=== PATIENT | female | born 1990 | race Two or more races ===

== ENCOUNTER 2019-02-12 23:23 | Inpatient (IN) | payer OTHER ==
[~2019-02-12] VITALS: Ht 154.9 cm; Wt 59.9 kg
[2019-02-12 23:35] VITALS: BP 105/67
--- NOTE | 2019-02-12 23:35 | NUR ---
FRICTION SAW OPERATOR TELE NOTES RECEIVED PATIENT FROM [facility] VIA GURNEY ACCOMPANIED BY 2 EMT, SAFELY TRANSFERRED TO BED, AWAKE ALERT AND ORIENTED X4, RESPIRATIONS EVEN AND UNLABORED WITH EQUAL RISE AND FALL OF CHEST, AT THIS TIME DENIES ANY PAIN OR DISCOMFORT, DENIES NAUSEA AT THIS TIME, PATIENT COMPLAINT OF FEELING DIZZY. ADMITTING DX ATAXIA, DIZZINESS AND NYSTAGMUS EYES NOTED RAPID MOVEMENT. IV SITE TO LEFT AC #20G INTACT AND PATENT, NO REDNESS, NO INFILTRATION PRESENT, PLACED ON OPERATIONS SYSTEMS SPECIALIST SR 81, BELONGINGS LIST DONE, PATIENT STATES " SHE HAS NO SKIN OR WOUND ISSUES". DECIDED TO KEPT PERSONAL CLOTHES ON. PATIENT STATES SHE HAS A HISTORY OF" VERTIGO X 1 YR AGO, IRON DEFICIENCY ANEMIA, ANXIETY& DEPRESSION BUT DOES NOT CURRENTLY TAKE ANY HOME MEDS AND HEAVY MENSTRUAL CYCLE. HOSPITALIST MADE AWARE OF ADMISSION WILL AWAIT ADMITTING ORDERS AND FOLLOW RECOMMENDED, ORIENTED TO STAFF AND CALL LIGHT AND KEPT WITHIN REACH, FALL PRECAUTIONS RENDERED, LOW BED AND LOCKED, BED ALARM IN PLACE, ALL NEEDS ATTENDED AT THIS TIME, WILL CONTINUE TO MONITOR AND ADDRESS NEEDS.
[2019-02-13] MEDS ORDERED: MAG HYDROX/AL HYDROX/SIMETH 30 ML UDC PO PRN (00:30)
[2019-02-13] MEDS ORDERED: ZOLPIDEM TARTRATE 5 MG TABLET PO PRN (00:30)
[2019-02-13] MEDS ORDERED: MAGNESIUM HYDROXIDE 30 ML UDC PO PRN (00:30)
[2019-02-13] MEDS ORDERED: HYDROCODONE/APAP 5/325MG 1 EACH TABLET PO PRN (00:30)
[2019-02-13] MEDS ORDERED: MORPHINE SULFATE INJ 2 MG/ML DISP.SYRIN IV PRN (00:30)
[2019-02-13] MEDS ORDERED: ONDANSETRON HCL/PF 4 MG/2 ML VIAL IVP PRN (00:30)
[2019-02-13] MEDS: ACETAMINOPHEN 325 MG TABLET PO PRN ×2 (00:46→09:22)
[2019-02-13] MEDS: IV NS 0.9% 1,000 ML IV PRN ×2 (00:46→19:26)
--- NOTE | 2019-02-13 00:46 | NUR ---
TRAIN CONTROL ELECTRONIC TECHNICIAN NOTES PATIENT STATES "SHE HAS A HEADACHE HAS NOT EATEN SINCE YESTERDAY " OFFERED TYLENOL FOR HEADACHE, PATIENT AGREED, PRN GIVEN ORDERED. WILL CONTINUE TO MONITOR FOR EFFECTIVENESS.
[2019-02-13 04:00] VITALS: BP 101/55
[2019-02-13 06:36] LABS: BASOPHILS % (AUTO) 0.1 % (0.0-2.0); HEMATOCRIT 42 % (33-45); LYMPHOCYTES # (AUTO) 0.8 /CMM (0.8-4.8); LYMPHOCYTES % (AUTO) 11.8 % (20.0-44.0); MEAN CORPUSCULAR HGB CONC 33 g/dl (31.0-36.0); MEAN CORPUSCULAR VOLUME 93 fL (82-100); MONOCYTES # (AUTO) 0.1 /CMM (0.1-1.30); MONOCYTES % (AUTO) 1.4 % (2.0-12.0); NEUTROPHILS # (AUTO) 6.1 /CMM (1.8-8.9); NEUTROPHILS % (AUTO) 86.7 % (43.0-81.0); PLATELET COUNT (AUTO) 365 /CMM (150-450); RED BLOOD CELL COUNT(AUTO) 4.52 MIL/uL (4.0-5.2)
--- NOTE | 2019-02-13 06:36 | NUR ---
WELDING ENGINEER CLOSING NOTES PATIENT REMAINS IN BED SLEEPING BUT EASILY AROUSABLE, RESPIRATIONS EVEN AND UNLABORED WITH EQUAL RISE AND FALL OF CHEST, DENIES ANY PAIN OR DISCOMFORT AT THIS TIME. IV SITE TO LEFT AC#20 G INTACT AND PATENT, NO REDNESS, NO INFILTRATION PRESENT, IVF RUNNING ORDERED, MEDICAL INSURANCE CODER IN PLACE SR 64,FLUIDS OFFERED, PATIENT WAS ABLE TO AMBULATE TO RESTROOM AND BACK TO BED SAFELY WITH ASSISTANCE. SAFETY PRECAUTIONS AND FALL PRECAUTIONS RENDERED, LOW BED AND LOCKED, BED ALARM IN PLACE, CALL LIGHT KEPT WITHIN REACH, DISCUSSED PLAN OF CARE, ALL NEEDS ATTENDED REMAINS COMFORTABLE AT THIS TIME, WILL CONTINUE TO MONITOR AND ENDORSE TO NEXT SHIFT FOR CONTINUITY OF CARE.
[2019-02-13 07:07] LABS: ALBUMIN 3.5 g/dL (3.4-5.0); BILIRUBIN,TOTAL 0.9 mg/dL (0.2-1.0); CREATININE 0.7 mg/dL (0.6-1.3); POTASSIUM 4.1 mmol/L (3.5-5.1); TOTAL PROTEIN, SERUM 7.2 g/dL (6.4-8.2)
[2019-02-13 08:00] VITALS: BP 109/67
--- NOTE | 2019-02-13 08:00 | NUR ---
COUTURE ALTERATIONS DRESSMAKER NOTES PT IN BED, ASLEEP, EASY TO AROUSE, ALERT AND ORIENTED, STILL WITH COMPLAINT OF DIZZINESS, NOT IN DISTRESS, CALL LIGHT WITHIN REACH, KEPT COMFORTABLE IN BED, BED ALARM ON.
[2019-02-13] MEDS ORDERED: MECL-102 PO (08:43)
[2019-02-13] MEDS: PANTOPRAZOLE 40 MG TABLET.DR PO SCH (08:49)
[2019-02-13] MEDS ORDERED: MECLIZINE HCL 25 MG TABLET PO PRN (10:00)
--- NOTE | 2019-02-13 13:00 | NUR ---
RN MS NOTES PT IN BED, ASLEEP, EASY TO AROUSE, ALERT AND ORIENTED, SEEN BY MD, PLAN OF CARE DISCUSSED WITH PT, VERBALIZED UNDERSTANDING, ABLE TO WALK TO THE BATHROOM WITH STANDBY ASSISTANCE, PAIN MEDS GIVEN FOR PAIN MANAGEMENT, ASSISTED WITH NEEDS.
[2019-02-13 16:00] VITALS: BP 99/61
--- NOTE | 2019-02-13 18:30 | NUR ---
RN MS NOTES PT IN BED, AWAKE, ALERT AND ORIENTED, NO COMPLAINT AT THIS TIME, RESPIRATIONS NORMAL, IV FLUIDS INFUSING WELL, DR. DE LA TORRE AWARE THAT PT IS HERE, PM CARE PROVIDED, CALL LIGHT WITHIN REACH.
--- NOTE | 2019-02-13 18:41 | NUR ---
Patient lives at home in [place] with her mother. She is ambulatory and independent with adl's. She see her pcp at [facility]. No dc planning needs identified at this time. Addendum: 02/13/19 at 1842 by MINDY MELISSA RN Amended: Links added.
--- NOTE | 2019-02-13 19:23 | NUR ---
MS RN RECEIVE PT IN BED A/O X 3, STABLE, RESPIRATIONS EVEN AND UNLABORED, SAFETY MEASURES IN PLACE. WILL CONTINUE TO MONITOR.
[2019-02-13 20:00] VITALS: BP 107/60
[2019-02-14 06:24] LABS: BASOPHILS % (AUTO) 0.3 % (0.0-2.0); EOSINOPHILS % (AUTO) 0.5 % (0.0-6.0); HEMATOCRIT 39 % (33-45); LYMPHOCYTES # (AUTO) 3.9 /CMM (0.8-4.8); LYMPHOCYTES % (AUTO) 48.6 % (20.0-44.0); MEAN CORPUSCULAR HGB CONC 34 g/dl (31.0-36.0); MEAN CORPUSCULAR VOLUME 93 fL (82-100); MONOCYTES # (AUTO) 0.4 /CMM (0.1-1.30); MONOCYTES % (AUTO) 5.5 % (2.0-12.0); NEUTROPHILS # (AUTO) 3.6 /CMM (1.8-8.9); NEUTROPHILS % (AUTO) 45.1 % (43.0-81.0); PLATELET COUNT (AUTO) 326 /CMM (150-450); RED BLOOD CELL COUNT(AUTO) 4.16 MIL/uL (4.0-5.2)
--- NOTE | 2019-02-14 06:28 | NUR ---
MS RN PT SLEPT WELL THROUGHOUT THE NIGHT. NO COMPLAIN OF PAIN AT THIS TIME. KEPT CLEAN AND DRY AND COMFORTABLE. NEEDS ATTENDED AND ANTICIPATED. NURSING CARE RENDERED, SAFETY MEASURES AT ALL TIMES. ENDORSE TO THE NEXT SHIFT.
--- NOTE | 2019-02-14 07:39 | NUR ---
MS RN OPENING NOTES RECEIVED PT IN BED, DOZING OFF INTERMITTENTLY, EASILY AROUSED; A/O X3. PT TOLERATING RA, WITH NO ACUTE RESPIRATORY DISTRESS NOTED. PT DENIES PAIN OR ANY DISCOMFORT AT THIS TIME. PT DENIES ANY CONCERNS OR QUESTIONS AT THIS MOMENT WELL. IVF NS AT 75ML/HR TO LAC, INTACT AND FLUID INFUSING WELL. PT KEPT COMFORTABLE. PT'S BED IN LOWEST, LOCKED POSITION WITH SR X3. WILL CONTINUE PLAN OF CARE.
[2019-02-14] MEDS: PANTOPRAZOLE 40 MG TABLET.DR PO SCH (07:49)
[2019-02-14 08:00] VITALS: BP 102/59
[2019-02-14] MEDS: MECLIZINE HCL 12.5 MG TABLET PO SCH ×2 (08:49→13:05)
[2019-02-14] MEDS: IV NS 0.9% 1,000 ML IV PRN (09:00)
[2019-02-14 09:07] LABS: POTASSIUM 3.8 mmol/L (3.5-5.1)
[2019-02-14 09:08] LABS: CALCIUM, SERUM 8.3 mg/dL (8.5-10.1); CREATININE 0.8 mg/dL (0.6-1.3)
[2019-02-14] MEDS ORDERED: predniSONE 20 MG TABLET PO SCH (09:30)
[2019-02-14 13:25] LABS: MAGNESIUM 1.9 mg/dL (1.8-2.4)
--- NOTE | 2019-02-14 14:15 | NUR ---
MS METER ENGINEER NOTES PT TO DISCHARGED HOME./ PT A/O X4; AMBULATORY. PT TOLERATING RA, WITHOUT RESPIRATORY DISTRESS NOTED. PT DENIES ANY PAIN OR DISCOMFORT. REVIEWED AND SIGNED DISCHARGE INSTRUCTIONS AND INVENTORY LIST BY THE PATIENT. ALL BELONGINGS WITH THE PT. PIV TO RIGHT HAND REMOVED, AND APPLIED DRY DRESSING. ALL NEEDS AND CARE PROVIDED. PT HAPPY WITH THE CARE. VS STABLE. PRESCRIPTIONS GIVEN TO THE PT. PT LEFT AND ESCORTED BY SOLAR SALES REPRESENTATIVE AND ASSESSOR VIA WHEELCHAIR TO THE LOBBY AT 1400. DB/SANDRA ND DISTRIBUTOR SALES MANAGER/TS AWARE AF DISCHARGE.
--- NOTE | 2019-02-14 14:22 | NUR ---
RN NOTES PT'S SKIN INTACT, NO PICTURES TAKEN AND FILED IN THE CHART.
[2019-02-15] MEDS ORDERED: PANTOPRAZOLE 40 MG TABLET.DR PO SCH (07:30)
== END 2019-02-14 17:00 | disposition home or self-care (01) | DRG 111 ==
LOC: TELE 23:23 → MED 02-13 17:03
PROVIDERS: ADMIT Nurse Practitioner Acute Care; ATTEND Nurse Practitioner Acute Care
DX: H81.10 Benign paroxysmal vertigo, unspecified ear (principal); D64.9 Anemia, unspecified; R27.0 Ataxia, unspecified; F32.9 Major depressive disorder, single episode, unspecified; F41.9 Anxiety disorder, unspecified; H55.00 Unspecified nystagmus; Z87.59 Personal history of other complications of pregnancy, childbirth and the puerperium; Z98.82 Breast implant status; Z82.49 Family history of ischemic heart disease and other diseases of the circulatory system; Z83.3 Family history of diabetes mellitus; J34.1 Cyst and mucocele of nose and nasal sinus; Z87.820 Personal history of traumatic brain injury
CPT/HCPCS: 36415; 80048-TC; 80053-TC; 80061-TC; 83735-TC; 84100-TC; 85025-TC; 87081-TC; 97116-TC; 97530-TC; G0378; J7030; J8597

== ENCOUNTER 2019-05-13 14:43 | Emergency (ER) | payer OTHER ==
[~2019-05-13] VITALS: Ht 154.9 cm; Wt 63.5 kg
[2019-05-13] MEDS ORDERED: MECLIZINE HCL 25 MG TABLET ONE (15:22)
[2019-05-13 15:25] LABS: BASOPHILS # (AUTO) 0.1 /CMM (0.0-0.2); EOSINOPHILS % (AUTO) 0.4 % (0.0-6.0); HEMATOCRIT 43 % (33-45); LYMPHOCYTES % (AUTO) 31.3 % (20.0-44.0); MEAN CORPUSCULAR HGB CONC 33 g/dl (31.0-36.0); MEAN CORPUSCULAR VOLUME 94 fL (82-100); MONOCYTES # (AUTO) 0.3 /CMM (0.1-1.30); MONOCYTES % (AUTO) 5.3 % (2.0-12.0); PLATELET COUNT (AUTO) 343 /CMM (150-450); RED BLOOD CELL COUNT(AUTO) 4.53 MIL/uL (4.0-5.2); WHITE BLOOD COUNT (AUTO) 6.5 K/uL (4.3-11.0)
[2019-05-13] MEDS ORDERED: MECLIZINE HCL 12.5 MG TABLET PO ONE (15:30)
--- NOTE | 2019-05-13 15:30 | NUR ---
CALLED [facility]. EARRINGS FABRICATOR WAS PAGED
[2019-05-13 15:33] LABS: CALCIUM, SERUM 9.3 mg/dL (8.5-10.1); CREATININE 0.7 mg/dL (0.6-1.3); POTASSIUM 3.3 mmol/L (3.5-5.1)
--- NOTE | 2019-05-13 16:03 | NUR ---
BLOOD DRAWN AND SENT TO LAB BY [facility] LEAD
--- NOTE | 2019-05-13 16:07 | NUR ---
PT TAKEN TO CT
--- NOTE | 2019-05-13 16:08 | NUR ---
Kevin wiggins in ED - 05/13/19 at 1622 by YAS PT TAKEN TO CT
--- NOTE | 2019-05-13 16:08 | NUR ---
CALLED [facility]. MICROFILM DUPLICATING UNIT SUPERVISOR WAS PAGED
--- NOTE | 2019-05-13 16:15 | NUR ---
PT BACK FROM CT
[2019-05-13] MEDS ORDERED: POTASSIUM CHLORIDE 20 MEQ TAB.PRT.SR PO ONE ×2 (16:30→16:53)
--- NOTE | 2019-05-13 17:24 | NUR ---
Patient discharged to home in stable condition. Written and verbal after care instructions given. Patient verbalizes understanding of instruction. Written prescriptions provided to patient and verbalized understanding
[2019-05-13 17:26] VITALS: BP 118/72
== END 2019-05-13 17:26 | disposition home or self-care (01) ==
LOC: ER 14:48
DX: R42 Dizziness and giddiness (principal); E87.6 Hypokalemia; F41.9 Anxiety disorder, unspecified; F32.9 Major depressive disorder, single episode, unspecified; D50.9 Iron deficiency anemia, unspecified; Z98.890 Other specified postprocedural states; Z91.018 Allergy to other foods; Z88.8 Allergy status to other drugs, medicaments and biological substances
CPT/HCPCS: 36415; 80048; 85025; 93005 ×2; 99284; J8597

== ENCOUNTER 2023-02-28 13:21 | Emergency (ER) | payer OTHER ==
[~2023-02-28] VITALS: Ht 154.9 cm; Wt 68.0 kg
[2023-02-28 13:51] VITALS: BP 122/71; TEMP 98; O2SAT 100
== END 2023-02-28 14:03 | disposition home or self-care (01) ==
LOC: ER 13:21
DX: F32.A Depression, unspecified (principal); D50.9 Iron deficiency anemia, unspecified; F41.9 Anxiety disorder, unspecified; Z98.890 Other specified postprocedural states; Z88.1 Allergy status to other antibiotic agents

== ENCOUNTER 2024-07-21 12:21 | Emergency (ER) | payer OTHER ==
[~2024-07-21] VITALS: Ht 154.9 cm; Wt 68.0 kg
[2024-07-21] MEDS ORDERED: ONDANSETRON HCL/PF 4 MG/2 ML VIAL ONE (13:17)
[2024-07-21] MEDS: IV NS 0.9% 1,000 ML BAG IV ONE (13:20)
[2024-07-21] MEDS: ONDANSETRON HCL/PF 4 MG/2 ML VIAL IVP ONE (13:20)
[2024-07-21 13:41] LABS: BASOPHILS % (AUTO) 0.3 % (0.0-2.0); EOSINOPHILS % (AUTO) 0.1 % (0.0-6.0); HEMATOCRIT 37 % (33-45); HEMOGLOBIN 12.3 g/dL (11.5-14.8); LYMPHOCYTES # (AUTO) 0.8 K/uL (0.8-4.8); LYMPHOCYTES % (AUTO) 7.6 % (20.0-44.0); MEAN CORPUSCULAR HEMOGLOBIN 32 PG (26.0-33.0); MEAN CORPUSCULAR HGB CONC 34 g/dl (31.0-36.0); MEAN CORPUSCULAR VOLUME 96 fL (82-100); MONOCYTES # (AUTO) 0.3 K/uL (0.1-1.30); MONOCYTES % (AUTO) 2.5 % (2.0-12.0); NEUTROPHILS % (AUTO) 89.5 % (43.0-81.0); PLATELET COUNT (AUTO) 438 K/uL (150-450); RED BLOOD CELL COUNT(AUTO) 3.83 MIL/uL (4.0-5.2); RED CELL DISTRIBUTION WIDTH 12.9 % (11.5-15.0); WHITE BLOOD COUNT (AUTO) 10.1 K/uL (4.3-11.0)
[2024-07-21 13:58] LABS: ALBUMIN 3.9 g/dL (3.4-5.0); BILIRUBIN,DIRECT 0.1 mg/dL (0.0-0.2); BILIRUBIN,TOTAL 0.3 mg/dL (0.2-1.0); CALCIUM, SERUM 9.1 mg/dL (8.5-10.1); CREATININE 0.7 mg/dL (0.6-1.3); POTASSIUM 3.7 mmol/L (3.5-5.1); TOTAL PROTEIN, SERUM 7.8 g/dL (6.4-8.2)
[2024-07-21] MEDS ORDERED: ACETAMINOPHEN ES 500 MG TABLET ONE (14:08)
[2024-07-21] MEDS: ACETAMINOPHEN ES 500 MG TABLET PO ONE (14:14)
[2024-07-21 14:57] LABS: APPEARANCE,URINE CLEAR (CLEAR); BILIRUBIN,URINE NEGATIVE (NEGATIVE); BLOOD, URINE NEGATIVE Ery/uL (NEGATIVE); COLOR,URINE YELLOW (YELLOW); KETONES,URINE NEGATIVE (NEGATIVE); LEUKOCYTE ESTERASE ,URINE NEGATIVE (NEGATIVE); NITRITE, URINE NEGATIVE (NEGATIVE); PH,URINE 5.5 (5.0-8.0); PROTEIN,URINE NEGATIVE (NEGATIVE); UGLUCOSE NEGATIVE (NEGATIVE); UROBILINOGEN,URINE 0.2 EU/dL (0.2)
[2024-07-21 15:56] VITALS: BP 118/70; TEMP 98.4; O2SAT 100
== END 2024-07-21 15:57 | disposition home or self-care (01) ==
LOC: ER 13:26
DX: R10.13 Epigastric pain (principal); R11.2 Nausea with vomiting, unspecified; R19.7 Diarrhea, unspecified; Z87.442 Personal history of urinary calculi; Z88.1 Allergy status to other antibiotic agents
CPT/HCPCS: 99284; 96374; 96361; 85025; 80048; 83690; 80076; 81003; 36415; 84702; J2405; J7030